=== PATIENT | male | born 1935 | race Caucasian/White ===

== ENCOUNTER → 2017-02-19 | Outpatient (CLI) | payer OTHER ==
[~2017-02-19] MED LIST: ATOR-22 PO; BUME1TAB PO; BUSP-8 PO; CHOL200027 PO; CLOP1TAB15 PO; CLR10 PO; CMD6 PO; FLUT0.15; GLIP-197 PO; LISI-729 PO; METO25TA3 PO; OPTIRAY 320 IV PRN; PRLSR20 PO; PRN1 PO; TRAM-10 PO; [UNRECOGNIZED DRUG - OTHER] PO
--- NOTE | 2017-02-19 11:44 | DIAGNOSTIC IMAGING REPORT ---
CT angiogram ANGIO ABD/PELVIS COMBO CLINICAL HISTORY: Aneurysm repair aortic aneurysm TECHNIQUE: Transaxial acquisition with multi axial reformatted images COMPARISON STUDY: 05/10/2015 FINDINGS: Fixed lateral hernia. Lung bases otherwise are clear. Liver spleen and pancreas remain unremarkable. Gallstones within the gallbladder lumen. Cyst. Evidence for prior aneurysm stenting procedure is again noted. The stent lumens are widely patent. Position of the stent is unaltered. Diameter of the aneurysm is unchanged. Atrophy of the right kidney persists and is unchanged. Multiple left renal cyst persists. There is no hydronephrosis. Several lower pole nonobstructive left renal calcifications are present. Bowel pattern is nonobstructive. There are findings of chronic sigmoid diverticulosis. There is no evidence for acute diverticulitis. There is a fat-containing right inguinal hernia. There is no evidence of bowel containment or obstructive change. IMPRESSION: 1. Stable postoperative abdominal aortic aneurysm repair utilizing aortoiliac stent grafting 2. Chronic sigmoid diverticulosis. 3. Bilateral renal cysts with atrophy of the right kidney unchanged. 4. Lower pole nonobstructing left renal calcifications. 5. Gallstones. Electronically signed by: Simeon Church M.D. 02/19/2017 11:43 AM Dictated Date/Time: 02/19/2017 11:35 AM
== END | disposition home or self-care (01) ==
LOC: C.CTS 10:19
PROVIDERS: ATTEND Surgery Vascular Surgery
DX: I71.4 Abdominal aortic aneurysm, without rupture (principal); K57.30 Diverticulosis of large intestine without perforation or abscess without bleeding

== ENCOUNTER 2017-03-05 07:56 | Day surgery (SDC) | payer OTHER ==
[~2017-03-05] VITALS: Ht 175.3 cm; Wt 82.0 kg
--- NOTE | 2017-03-05 06:11 | History and Physical ---
History & Physical Date of Service Mar 05, 2017. History & Physical CC: End stage renal disease, malfunctioning left forearm fistula HPI: Mr. Henson states that he recently underwent coronary stent insertion in July 2015 and that this occurred in the hospital at [place]. The patient also states that his renal function worsened post stent insertion to the point that he required hemodialysis and has been on it since July through a right chest PermCath. He had a left forearm fistula placed which is not running well. H The patient denies any other new complaints at this time aside from some fatigue and did undergo a new vein mapping prior to today's ae had revision of his fistula in the recent past. He is admitted for a fistulogram with possible intervention. Allergies are none known. Medications are on the chart and reviewed. Past medical history is positive for hypertension, diabetes, stroke and kidney disease. Family history is positive for diabetes. Social History: He smoked for 55 years, a pack and a half a day. He quit in 2005. He does not drink. Physical Exam: Patient is awake, oriented x3. Blood pressure is 144/80 in the right, 142/78 in the left. Head and neck within normal limits. No carotid bruits. The lungs are clear. Heart had a regular rate and rhythm. His abdomen exam is benign. He has a rotund abdomen which made it difficult to feel the aneurysm, but there is a pulsatile mass present. Vascular exam of his radials, carotids and temporal arteries +2 bilaterally. Femorals and pedals are all +2 bilaterally. There is a good thrill in the fistula Neurologic exam is grossly intact. Impression: End stage renal disease. Malfunctioning left forearm av fistula Plan: Patient is admitted for a fistulogram with possible intervention.. I have discussed the risks options and benefits of the procedure with the patient. The patient understands the risks options and benefits and agrees to the procedure.
[~2017-03-05 07:56] MED LIST changes: +CEFAZOLIN 1000MG/55 ML D5W IV SCH; +D5W AND 1/4NSS 1,000 ML IV SCH; -GLIP-197 PO; -OPTIRAY 320 IV PRN; -TRAM-10 PO
[2017-03-05 08:50] VITALS: BP 126/74; PULSE 69; TEMP 36.7; O2SAT 96; Ht 175.3 cm; Wt 82.0 kg
[2017-03-05] MEDS ORDERED: FENTANYL CITRATE INJ 50 MCG/1 ML 2 ML VIAL ONE (09:20)
[2017-03-05] MEDS ORDERED: MIDAZOLAM HCL 1 MG/ML 2ML VIAL ONE (09:21)
--- NOTE | 2017-03-05 09:31 | History & Physical Bridge Note ---
H&P Re-Evaluation Bridge Note: I have examined the patient, reviewed the History & Physical and in the interval since the performance of the History & Physical I have noted the following changes of clinical significance: No changes noted
--- NOTE | 2017-03-05 09:31 | Procedure Note ---
Pre-Mod Sedation Assessment General Date of Moderate Sedation: Mar 05, 2017. Vital Signs: Vital Signs Past 12 Hours Date Time Temp Pulse Resp B/P (MAP) Pulse Ox O2 Delivery O2 Flow Rate FiO2 03/05/17 08:50 36.7 69 22 126/74 (91) 96 Room Air Pre-Sedation Airway Assessment Oral Cavity: Loose Teeth, Chipped Teeth, Dentures Short Thick Neck: No Hx of Sleep Apnea: No Smoking Status: Former Smoker Mallampati Classification: Class I ASA Classification: Class III Notes The planned sedation has been discussed with the patient and consent obtained. I have identified the patient, determined the appropriateness of sedation and have assessed the patient immediately prior to the procedure. All medicine(s) and interventions are by my order.
[2017-03-05 09:36] VITALS: BP 126/74; PULSE 69; TEMP 36.7; O2SAT 96
[2017-03-05 09:38] LABS: INR 1.5 (0.9-1.1); PARTIAL THROMBOPLASTIN RATIO 1.2; PROTHROMBIN TIME (PATIENT) 16.4 SECONDS (9.0-12.0)
[2017-03-05] MEDS ORDERED: GLIP-197 PO (09:41)
[2017-03-05] MEDS ORDERED: CEFAZOLIN 2000 MG/60 ML D5W 60 ML IV ONE (09:45)
[2017-03-05] MEDS ORDERED: LIDOCAINE HCL 1% 20 ML VIAL INJ ONE ×2 (10:10→10:13)
[2017-03-05] MEDS ORDERED: FENTANYL CITRATE INJ 50 MCG/1 ML 2 ML VIAL IV ONE (10:19)
[2017-03-05] MEDS ORDERED: OPTIRAY 300 IV ONE (10:36)
--- NOTE | 2017-03-05 10:38 | [facility] Post Operative Brief Note ---
Immediate Operative Summary Operative Date Mar 05, 2017. Pre-Operative Diagnosis malfunctioning fistula Post-Operative Diagnosis same Procedure(s) Performed Fistulogram, Percutaneous Transluminal Angioplasty Venous Surgeon Dr. Irving Wheel Installer Surgeon(s) none Estimated Blood Loss 5 ml Findings stenosis of mid forearm vein Specimens none Anesthesia Local Complication(s) None Disposition
--- NOTE | 2017-03-05 10:41 | Discharge Instructions ---
Discharge Instructions Date of Service Mar 05, 2017. Visit Reason for Visit: End Stage Renal Disease -On Hemodialysis Discharge Discharge Diagnosis / Problem: Malfunctioning left forearm fistula Discharge Goals Goal(s): Therapeutic intervention Activity Recommendations Activity Limitations: resume your previous activity Anesthesia . Post Anesthesia Instructions: If you have had General Anesthesia or IV Sedation: * Do not drive today. * Resume driving when surgeon permits. * Do not make important decisions or sign legal documents today. * Call surgeon for: 1. Temperature elevations greater than 101 degrees F. 2. Uncontrollable pain. 3. Excessive bleeding. 4. Persistent nausea and vomiting. 5. Medication intolerance (nausea, vomiting or rash). * For nausea and vomiting use only clear liquids such as: tea, soda, bouillon until nausea subsides, then gradually increase diet as tolerated. * If you have any concerns or questions, call your surgeon's office. If physician is unavailable and it is an emergency, call 911 or go to the nearest emergency room. . Instructions / Follow-Up Instructions / Follow-Up Call [phone] to schedule a follow up appointment if one not already scheduled. SPECIAL CARE INSTRUCTIONS: Medications: * Continue to take your medications as directed. If you have been given a prescription for Plavix, please fill it immediately and take as directed. Incision Care: * Your puncture site may have some bruising and minor swelling for about one week. * You will have a small dressing covering your puncture site. You may remove the dressing after 24 hours and shower. You may let the warm soapy water run over it, but be sure to dry the puncture site well and keep it dry. * DO NOT IMMERSE THE INCISION IN A TUB/POOL/etc. UNTIL HEALED. * Puncture sites should be kept covered with a band-aid until it begins to heal. Restrictions: * Depending on whether you leg or arm was punctured to access the arteries, you will be required to lay flat, hold your arm still, or both, for about 4 hours after the procedure to prevent bleeding. * Limit your activity for the first 48 hours. You may walk and go up and down steps. Avoid excessive bending or movement at the puncture site. Possible Complications: * Excessive Swelling - after blood flow is improved you may notice increased swelling in the lower legs. This is a normal response. This usually depends on the amount of blockages in the leg, how long they have been there prior to your procedure and how much blood flow was restored. Elevating your legs will help to improve this. Please notify our office ([phone] ) if the swelling does not go away after lying in bed overnight. * Infection/Drainage/Bleeding - Drainage or bleeding from the puncture site should be minimal. If you have excessive bleeding or drainage, call our office ([phone]) right away. * Pain - You may experience some mild pain or soreness at your puncture site. If your pain does not improve, please contact our office ([phone]). Call your doctor and seek emergent treatment if you develop: * Temperature above 101 degrees * Any fever or chills * Any redness or purulent drainage from the puncture site * Any new dusky/blue colored toes or feet with coolness or sharp or aching pain. SKIN IRRITATION: * You may experience some redness and/or swelling in the area where radiation was administered. If any skin irritation occurs, please contact your family physician. FOLLOW UP VISIT: Keep any scheduled doctor appointments. Diet Recommendations Recommended Home Diet: resume previous diet Procedures Procedures Performed: Fistulogram, Percutaneous Transluminal Angioplasty Venous Pending Studies Studies pending at discharge: no Medical Emergencies . Who to Call and When: Medical Emergencies: If at any time you feel your situation is an emergency, please call 911 immediately. . Non-Emergent Contact Non-Emergency issues call your: Surgeon . . "Provider Documentation" section prepared by Pepito Irving. .
[2017-03-05 10:45] VITALS: BP 123/72; PULSE 66; TEMP 36.5; O2SAT 96
--- NOTE | 2017-03-05 10:56 | [facility] Operative Report ---
Operative Report Operative Date Mar 05, 2017. Pre-Operative Diagnosis malfunctioning fistula Post-Operative Diagnosis same Procedure(s) Performed Fistulogram, Percutaneous Transluminal Angioplasty Venous Surgeon Dr. Irving Digital Marketing Analyst Surgeon(s) none Estimated Blood Loss 5 ml Findings stenosis mid forearm vein Specimens none Anesthesia Local Complication(s) None Disposition Indications This is a 81-year-old white male with a left forearm AV fistula. Dialysis reported that he is having difficulty with his runs. Fistulogram with possible intervention was recommended he understood the risks options benefits and agrees to go ahead with the procedure.. Description of Procedure The patient was taken to the angiogram suite and placed in supine position. After the left forearm was prepped and draped in a sterile manner local anesthetic was administered. A percutaneous puncture was made of the fistula proximally just beyond the arterial anastomosis using micropuncture technique. A micropuncture sheath was then inserted. A fistulogram was performed. This showed narrowing throughout the proximal portion of the fistula from just beyond the arterial anastomosis to the mid forearm. The antecubital veins are widely patent as well as the cephalic basilic veins in the lower third of the upper arm. The puncture site was close to the narrowed area. It was decided to do a downward retrograde puncture just below the antecubital fossa. This area was then anesthetized and a retrograde puncture was made again using micropuncture technique. A 4 [place] micropuncture wheath was inserted. An 014 command wire was inserted and passed through the arterial anastomosis. The proximal sheath was pulled. A 4 x 60 balloon was inserted to the proximal end of the fistula to the mid forearm. This area was dilated. A fistulogram done at the end still showed narrowing present throughout. The micropuncture sheath was then exchanged over an 035 wire to a 5 [place] sheath. The 035 glidewire was inserted down through the anastomosis. A 5 x 6 balloon was then used to redilate this area. The area looked somewhat better. There was still some slight narrowing appreciated in the proximally 4 cm of the vein in the midforearm. A 6 x 6 balloon was inserted and the area redilated. The area looked much better when we were done. There was a good thrill in the fistula. The 5 [place] sheath in the antecubital fossa was then pulled and pressure was applied and hemostasis was obtained. Adequate hemostasis was noted and sterile dressings were applied to the wound\. The patient left the angiogram suite in good condition and tolerated procedure well. I attest to the content of the Intraoperative Record and any orders documented therein. Any exceptions are noted below.
[2017-03-05 11:00] VITALS: BP 102/57; PULSE 70; TEMP 36.1; O2SAT 97
[2017-03-05 11:15] VITALS: BP 113/61; PULSE 65; TEMP 36.5; O2SAT 97
== END 2017-03-05 11:31 | disposition home or self-care (01) ==
LOC: C.ACU 07:56
PROVIDERS: ATTEND Surgery Vascular Surgery
DX: T82.590A Other mechanical complication of surgically created arteriovenous fistula, initial encounter (principal); Y83.2 Surgical operation with anastomosis, bypass or graft as the cause of abnormal reaction of the patient, or of later complication, without mention of misadventure at the time of the procedure; N18.6 End stage renal disease; I12.0 Hypertensive chronic kidney disease with stage 5 chronic kidney disease or end stage renal disease; E11.9 Type 2 diabetes mellitus without complications; Z86.73 Personal history of transient ischemic attack (TIA), and cerebral infarction without residual deficits; Z87.891 Personal history of nicotine dependence; Z83.3 Family history of diabetes mellitus

== ENCOUNTER → 2017-07-17 | Day surgery (SDC) | payer OTHER ==
[~2017-07-17] VITALS: Ht 175.3 cm; Wt 80.0 kg
[~2017-07-17] MED LIST changes: +ATROPINE SULFATE 0.1 MG/ML 5ML SYR IV PRN; +BUPIVACAINE/EPINEPHRINE 0.5% MPF 1:200,000 30 ML VIAL ONE; +CEFAZOLIN 1000MG IV PUSH 5 ML IV SCH; -CEFAZOLIN 1000MG/55 ML D5W IV SCH; -D5W AND 1/4NSS 1,000 ML IV SCH; +EpHEDrine SULFATE INJ 50 MG/ML AMP IV PRN; +FENTANYL CITRATE INJ 50 MCG/1 ML 2 ML VIAL IV PRN; +FENTANYL CITRATE INJ 50 MCG/1 ML 2 ML VIAL ONE; +GELATIN SPONGE 12-7MM ONE; +GLIP-197 PO; +HEPARIN SOD (PORCINE) 1000 UNIT/ML 10 ML VIAL ONE; +LIDOCAINE HCL 1% 20 ML VIAL ONE; +MIDAZOLAM HCL 1 MG/ML 2ML VIAL ONE; +ONDANSETRON INJ 2 MG/ML 2 ML VIAL IV PRN; +PROPOFOL IV EMULSION 10 MG/ML 20 ML VIAL IV ONE; +SODIUM CHLORIDE 0.9% 1000ML IV SCH; +THROMBIN FOR SOLN 20000 UNIT KIT ONE; +TRAM-10 PO
--- NOTE | 2017-07-17 06:15 | History and Physical ---
History & Physical Date of Service Jul 17, 2017. History & Physical CC: End stage renal disease, thrombosed left forearm fistula HPI: Mr. Henson states that he recently underwent coronary stent insertion in July 2015 and that this occurred in the hospital at [place]. The patient also states that his renal function worsened post stent insertion to the point that he required hemodialysis and has been on it since July through a right chest PermCath. He had a left forearm fistula placed which is now thrombosed. The fistula underwent balloon angioplasty a few months ago. The patient denies any other new complaints at this time aside from some fatigue and did undergo a new vein mapping prior to today's ae had revision of his fistula in the recent past. He is admitted for a fistulogram with possible intervention. Allergies are none known. Medications are on the chart and reviewed. Past medical history is positive for hypertension, diabetes, stroke and kidney disease. Family history is positive for diabetes. Social History: He smoked for 55 years, a pack and a half a day. He quit in 2005. He does not drink. Physical Exam: Patient is awake, oriented x3. Blood pressure is 144/80 in the right, 142/78 in the left. Head and neck within normal limits. No carotid bruits. The lungs are clear. Heart had a regular rate and rhythm. His abdomen exam is benign. He has a rotund abdomen which made it difficult to feel the aneurysm, but there is a pulsatile mass present. Vascular exam of his radials, carotids and temporal arteries +2 bilaterally. Femorals and pedals are all +2 bilaterally. There is a good thrill in the fistula Neurologic exam is grossly intact. Impression: End stage renal disease. Thrombosed left forearm av fistula Plan: Patient is admitted for a thrombectomy of his fistula with possible revision. I have discussed the risks options and benefits of the procedure with the patient. The patient understands the risks options and benefits and agrees to the procedure.
[2017-07-17 09:03] VITALS: BP 131/74; PULSE 78; TEMP 36.5; O2SAT 95; Ht 175.3 cm; Wt 80.0 kg
[2017-07-17 09:28] LABS: INR 1.2 (0.9-1.1); PARTIAL THROMBOPLASTIN RATIO 1.1; PROTHROMBIN TIME (PATIENT) 12.8 SECONDS (9.0-12.0)
[2017-07-17 09:41] LABS: BUN/CREATININE RATIO 9.5 (10-20); CREATININE 3.75 mg/dl (0.60-1.40); POTASSIUM 3.9 mmol/L (3.5-5.1)
--- NOTE | 2017-07-17 10:54 | [facility] Post Operative Brief Note ---
Immediate Operative Summary Operative Date Jul 17, 2017. Pre-Operative Diagnosis End Stage Renal Disease, Thrombosed Left Forearm Fistula Post-Operative Diagnosis End Stage Renal Disease, Thrombosed Left Forearm Fistula Procedure(s) Performed Left antecubital cephalic vein arteriovenous fistula creation Surgeon Dr. Irving White Lead Filterer Surgeon(s) JEFFERSON Kim Estimated Blood Loss 20 ml Findings good thrill Specimens none per surgeon Anesthesia MAC Complication(s) None Disposition Recovery Room / PACU
--- NOTE | 2017-07-17 11:03 | Discharge Instructions ---
Discharge Instructions Date of Service Jul 17, 2017. Visit Reason for Visit: End Stage Renal Disease Malfunctioning Fistula Discharge Discharge Diagnosis / Problem: Thrombosed left forearm fistula Discharge Goals Goal(s): Therapeutic intervention Activity Recommendations Activity Limitations: per Instructions/Follow-up section Anesthesia . Post Anesthesia Instructions: If you have had General Anesthesia or IV Sedation: * Do not drive today. * Resume driving when surgeon permits. * Do not make important decisions or sign legal documents today. * Call surgeon for: 1. Temperature elevations greater than 101 degrees F. 2. Uncontrollable pain. 3. Excessive bleeding. 4. Persistent nausea and vomiting. 5. Medication intolerance (nausea, vomiting or rash). * For nausea and vomiting use only clear liquids such as: tea, soda, bouillon until nausea subsides, then gradually increase diet as tolerated. * If you have any concerns or questions, call your surgeon's office. If physician is unavailable and it is an emergency, call 911 or go to the nearest emergency room. . Instructions / Follow-Up Instructions / Follow-Up Call [phone] to schedule a follow up appointment if one not already scheduled. Take this with you to dialysis and give to dialysis nurses May use left upper arm fistula for dialysis ACTIVITY RECOMMENDATIONS: See Above SPECIAL CARE INSTRUCTIONS: Call your doctor if: * Temperature above 101 degrees * Pain not relieved by pain medicine ordered * There is increased drainage or redness from any incision * You have any unanswered questions or concerns. Diet Recommendations Recommended Home Diet: resume previous diet Procedures Procedures Performed: Left antecubital cephalic vein arteriovenous fistula creation Pending Studies Studies pending at discharge: no Medical Emergencies . Who to Call and When: Medical Emergencies: If at any time you feel your situation is an emergency, please call 911 immediately. . Non-Emergent Contact Non-Emergency issues call your: Surgeon . . "Provider Documentation" section prepared by Pepito Irving. .
--- NOTE | 2017-07-17 11:13 | [facility] Operative Report ---
Operative Report Operative Date Jul 17, 2017. Pre-Operative Diagnosis End Stage Renal Disease, Thrombosed Left Forearm Fistula Post-Operative Diagnosis End Stage Renal Disease, Thrombosed Left Forearm Fistula Procedure(s) Performed Left antecubital cephalic vein arteriovenous fistula creation Surgeon Dr. Irving Grain Loader Surgeon(s) JEFFERSON Kim Estimated Blood Loss 20 ml Findings Good thrill was felt in the upper arm fistula. Specimens none per surgeon Anesthesia MAC Disposition Recovery Room / PACU Indications This is an 81-year-old male who has a left forearm fistula which is thrombosed. The vein in the forearm has been treated in the past with balloon angioplasties and on the last fistulogram was fairly irregular. A new fistula in the antecubital fossa was recommended. I have discussed the risks options and benefits of the procedure with the patient. The patient understands the risks options and benefits and agrees to the procedure.. Description of Procedure The patient was taken to the operating room and placed in the supine position. After the left arm was prepped and draped in a sterile manner local anesthetic was administered. A transverse incision was made just below the antecubital crease in the left arm. This is carried down to where the cephalic vein was identified. It was extremely large approximately 6 mm in size. Dissection was carried downward. The brachial artery was identified. It was of good caliber and soft. The cephalic vein was then ligated distally and divided. A longitudinal arteriotomy was made in the brachial artery. An end to side anastomosis was then accomplished between the cephalic vein and brachial artery. This was done with a running 6-0 Prolene suture in the usual vascular fashion. Prior to completing the anastomosis, back bleeding and fore bleeding was allowed to occur. The final few sutures were placed and securely tied. Clamps were then removed. There was a good thrill and good flow through the fistula however the fistula looked like it had approximately an eighth of a twist in the vein. It was decided to redo the anastomosis. The artery and vein were reclamped. Using an 11 blade the anastomosis was taken down. The vein was then reanastomosed to the artery with eighth of the turn untwisted. This was again was done with 6-0 Prolene suture in the usual vascular fashion. Prior to completing the closure back bleeding and fore bleeding was allowed to occur. The final few sutures were then placed and securely tied. Clamps were removed. Excellent flow was seen through the fistula with a good palpable thrill. Adequate hemostasis was noted of the wound and the wound was then closed in the usual fashion using a running 3-0 Vicryl suture for the subcutaneous layer and a running 4-0 subcuticular suture Vicryl for the skin edges. Dermabond was used for dressing. The patient left the operating room in satisfactory condition and tolerated procedure well. All needle and sponge counts were correct at the end of the procedure Renita Ochao Pac assisted due to lack of resident availability and was necessary for prepping, draping, retraction, wound closure defects, subcutaneous tissue, and skin closure and was necessary for the case. I attest to the content of the Intraoperative Record and any orders documented therein. Any exceptions are noted below.
--- NOTE | 2017-07-17 11:29 | Progress Note ---
Progress Note Date of Service Jul 17, 2017. Progress Note I assisted Dr Irving with Macario Henson's Left antecubital cephalic vein arteriovenous fistula creation on 07/17/17, d/t lack of resident availability.
--- NOTE | 2017-07-17 11:30 | Anesthesiology Progress Note ---
Anesthesia Post Op Note Date & Time Jul 17, 2017 at 11:30 Vital Signs Pain Intensity: 4 Vital Signs Past 12 Hours Date Time Temp Pulse Resp B/P (MAP) Pulse Ox O2 Delivery O2 Flow Rate FiO2 07/17/17 11:11 36.6 71 17 120/74 98 Nasal Cannula 2 07/17/17 09:03 36.5 78 20 131/74 (93) 95 Room Air Notes Mental Status: alert / awake / arousable, participated in evaluation Pt Amnestic to Procedure: Yes Nausea / Vomiting: adequately controlled Pain: adequately controlled Airway Patency, RR, SpO2: stable & adequate BP & HR: stable & adequate Hydration State: stable & adequate Anesthetic Complications: no major complications apparent
[2017-07-17 11:40] VITALS: BP 114/73; PULSE 71; TEMP 36.4; O2SAT 98
[2017-07-17 12:10] VITALS: BP 116/64; PULSE 76; TEMP 36.5; O2SAT 98
== END | disposition home or self-care (01) ==
LOC: C.ACU 08:29
PROVIDERS: ATTEND Surgery Vascular Surgery
DX: T82.868A Thrombosis due to vascular prosthetic devices, implants and grafts, initial encounter (principal); N18.6 End stage renal disease; Z99.2 Dependence on renal dialysis; E11.22 Type 2 diabetes mellitus with diabetic chronic kidney disease; I12.0 Hypertensive chronic kidney disease with stage 5 chronic kidney disease or end stage renal disease; Z86.73 Personal history of transient ischemic attack (TIA), and cerebral infarction without residual deficits; Z87.891 Personal history of nicotine dependence